=== PATIENT | female | born 1945 | race Caucasian/White ===

== ENCOUNTER 2021-03-20 08:46 | Inpatient (IN) | payer OTHER ==
[~2021-03-20] VITALS: Ht 157.5 cm; Wt 61.7 kg
[2021-03-20] MEDS ORDERED: MAGNESIUM CITRATE 300ML SOLUTION PO ONE (11:30)
[2021-03-20 13:27] LABS: HEMATOCRIT. 43.2 % (36.0-48.0); HEMOGLOBIN. 14.8 g/dL (12.0-16.0); MEAN CORPUSCULAR VOLUME 96.2 fL (81.0-99.0); MEAN PLATELET VOLUME 7.5 fl (7.4-10.4); PLATELET 133 x1000/uL (130-400); RED BLOOD CELL COUNT 4.49 mill/uL (4.2-5.4); RED CELL DISTRIBUTION WIDTH 14.5 % (11.6-14.6)
[2021-03-20 13:35] LABS: CHLORIDE 98 mEq/L (98-107)
[2021-03-20 13:37] LABS: PROTHROMBIN TIME 11.2 sec (9.6-11.0)
[2021-03-20 13:48] LABS: PLATELET ESTIMATE NORMAL
[2021-03-20] MEDS ORDERED: MORPHINE SULFATE 4 MG/ML CPJ (NOT FOR IM USE) IV NR (16:30)
[2021-03-20] MEDS ORDERED: LORAZEPAM 2MG/ML CPJ IV ONE (16:30)
[2021-03-20] MEDS ORDERED: SODIUM CHLORIDE 0.9% 1,000 ML IV ONE ×2 (16:30→19:15)
[2021-03-20] MEDS ORDERED: CEFTRIAXONE 1 G PREMIX 50 ML IV NR (17:00)
[2021-03-20] MEDS ORDERED: METRONIDAZOLE 500 MG PREMIX 100 ML IV NR (17:00)
[2021-03-20] MEDS ORDERED: IOHEXOL-300 100 ML BOTTLE ONE (18:12)
[2021-03-20 19:44] LABS: HEMATOCRIT. 42.3 % (36.0-48.0); HEMOGLOBIN. 14.4 g/dL (12.0-16.0); MEAN CORPUSCULAR HEMOGLOBIN 33.3 pg (28.0-32.0); MEAN CORPUSCULAR VOLUME 97.7 fL (81.0-99.0); MEAN PLATELET VOLUME 7.7 fl (7.4-10.4); PLATELET 126 x1000/uL (130-400); RED BLOOD CELL COUNT 4.33 mill/uL (4.2-5.4); RED CELL DISTRIBUTION WIDTH 14.7 % (11.6-14.6)
[2021-03-20 20:42] LABS: PLATELET ESTIMATE SLIGHTLY DECREASED
[2021-03-20 21:19] LABS: CLARITY URINE CLEAR (CLEAR); COLOR URINE DARK YELLOW (YELLOW); KETONES URINE TRACE (NEGATIVE); LEUKOCYTE ESTERASE URINE 1+ (NEGATIVE); NITRITE URINE POSITIVE (NEGATIVE); OCCULT BLOOD URINE 3+ (NEGATIVE); PH URINE 7.5 (4.5-8.0); PROTEIN URINE 1+ (NEGATIVE); SPECIFIC GRAVITY URINE 1.085 (1.005-1.030)
[2021-03-20] MEDS ORDERED: HYDROCODONE/ACETAMINOPHEN 5/325MG TABLET PO PRN (21:45)
[2021-03-20] MEDS ORDERED: CLONIDINE 0.1MG TABLET PO PRN (21:45)
[2021-03-20] MEDS ORDERED: MAGNESIUM/ALUMINUM HYDROXIDE/SIMETHICONE 30ML UDC PO PRN (21:45)
[2021-03-20] MEDS ORDERED: GUAIFENESIN 200MG/10ML SUGAR FREE UDC PO PRN (21:45)
[2021-03-20] MEDS ORDERED: HYDRALAZINE 20MG/ML VIAL IV PRN (21:45)
[2021-03-20] MEDS ORDERED: DOCUSATE SODIUM 100MG CAPSULE PO PRN (21:45)
[2021-03-20] MEDS ORDERED: ACETAMINOPHEN 325MG TABLET PO PRN (21:45)
[2021-03-20] MEDS ORDERED: IPRATROPIUM/ALBUTEROL 0.5-3(2.5)MG/3ML NEB HHN PRN (21:45)
[2021-03-20] MEDS ORDERED: DIPHENHYDRAMINE 50MG/ML VIAL IV PRN (21:45)
[2021-03-20] MEDS ORDERED: CEFTRIAXONE 1 G PREMIX 50 ML IV SCH (21:45)
[2021-03-20] MEDS ORDERED: ONDANSETRON HCL 4MG/2ML INJ IV PRN (21:45)
[2021-03-20] MEDS: SODIUM CHLORIDE 0.9% INJ 3ML FLUSH IVF SCH (22:00)
[2021-03-20] MEDS: DEXT 5%/0.45% NACL 1000ML 1,000 ML IV SCH (23:18)
[2021-03-21] MEDS: MORPHINE SULFATE 2 MG/ML CPJ (NOT FOR IM USE) IV PRN ×2 (00:07→20:54)
[2021-03-21] MEDS ORDERED: METRONIDAZOLE 500 MG PREMIX 100 ML IV SCH (02:00)
[2021-03-21] MEDS: LORAZEPAM 2MG/ML CPJ IV PRN ×2 (06:13→20:54)
[2021-03-21] MEDS: SODIUM CHLORIDE 0.9% INJ 3ML FLUSH IVF SCH ×3 (06:24→21:07)
[2021-03-21] MEDS: METRONIDAZOLE 500 MG PREMIX 100 ML IV SCH ×2 (11:06→18:17)
[2021-03-21 11:30] VITALS: BP 100/49
[2021-03-21 11:58] VITALS: BP 100/49
[2021-03-21] MEDS ORDERED: ERGO500013 PO (12:40)
[2021-03-21] MEDS ORDERED: PROP10TA10 PO (12:40)
[2021-03-21] MEDS ORDERED: LOSA50TA41 PO (12:40)
[2021-03-21] MEDS ORDERED: CARB-33 MT (12:40)
[2021-03-21] MEDS ORDERED: FLUO40CA49 MT (12:40)
[2021-03-21] MEDS ORDERED: PHEN100C4 MT (12:40)
[2021-03-21] MEDS ORDERED: LEVO25TA7 PO (12:40)
[2021-03-21] MEDS ORDERED: MECL-159 PO (12:40)
[2021-03-21] MEDS ORDERED: AMLO10TA80 MT (12:40)
[2021-03-21] MEDS ORDERED: CARB200C7 PO (12:40)
[2021-03-21] MEDS ORDERED: LORA-250 MT (12:40)
[2021-03-21] MEDS: CARBAMAZEPINE 200MG TABLET PO SCH ×2 (13:00→17:00)
[2021-03-21] MEDS: CARBIDOPA/LEVODOPA 25/250MG TABLET PO SCH ×3 (13:00→21:00)
[2021-03-21] MEDS: PANTOPRAZOLE SODIUM 40 MG/VIAL IV SCH ×2 (13:12→21:07)
[2021-03-21] MEDS: DEXT 5%/0.45% NACL 1000ML 1,000 ML IV SCH (14:33)
[2021-03-21 14:52] LABS: BASOPHILS % 0.2 % (0.0-2.0); HEMOGLOBIN. 12.2 g/dL (12.0-16.0); LYMPHOCYTES % 10.8 % (20.0-50.0); MEAN CORPUSCULAR HEMOGLOBIN 33.9 pg (28.0-32.0); MEAN CORPUSCULAR VOLUME 97.3 fL (81.0-99.0); MEAN PLATELET VOLUME 7.5 fl (7.4-10.4); MONOCYTES % 10.4 % (2.0-8.0); NEUTROPHILS % 77.6 % (40.0-76.0); PLATELET 94 x1000/uL (130-400); RED CELL DISTRIBUTION WIDTH 14.9 % (11.6-14.6)
[2021-03-21 15:05] LABS: CHLORIDE 104 mEq/L (98-107)
[2021-03-21] MEDS ORDERED: CEFTRIAXONE 1,000 MG in DEXTROSE 5% WATER 50 ML IV SCH (17:00)
[2021-03-21 17:30] VITALS: BP 114/51
[2021-03-21] MEDS: CEFTRIAXONE 1,000 MG in DEXTROSE 5% WATER 50 ML IV SCH (17:34)
[2021-03-21 20:00] VITALS: BP 129/60
[2021-03-21] MEDS: PHENYTOIN SODIUM EXTENDED 100MG CAPSULE PO SCH (21:00)
[2021-03-22] VITALS: BP 117/59
[2021-03-22 00:37] LABS: HEMATOCRIT 34.9 % (36.0-48.0); HEMOGLOBIN 11.7 g/dL (12.0-16.0)
[2021-03-22] MEDS: METRONIDAZOLE 500 MG PREMIX 100 ML IV SCH ×3 (02:36→17:30)
[2021-03-22 04:00] VITALS: BP 112/44
[2021-03-22] MEDS: MORPHINE SULFATE 2 MG/ML CPJ (NOT FOR IM USE) IV PRN (06:10)
[2021-03-22] MEDS: SODIUM CHLORIDE 0.9% INJ 3ML FLUSH IVF SCH ×3 (06:11→22:00)
[2021-03-22] MEDS: LEVOTHYROXINE SODIUM 25MCG TABLET PO SCH (06:11)
[2021-03-22] MEDS: LORAZEPAM 2MG/ML CPJ IV PRN ×2 (06:24→16:17)
[2021-03-22 07:42] LABS: BASOPHILS % 0.2 % (0.0-2.0); EOSINOPHILS % 4.4 % (0.0-5.0); HEMATOCRIT. 33.2 % (36.0-48.0); HEMOGLOBIN. 11.3 g/dL (12.0-16.0); LYMPHOCYTES % 11.1 % (20.0-50.0); MEAN CORPUSCULAR HEMOGLOBIN 33.4 pg (28.0-32.0); MEAN CORPUSCULAR VOLUME 97.9 fL (81.0-99.0); MEAN PLATELET VOLUME 7.9 fl (7.4-10.4); MONOCYTES % 8.8 % (2.0-8.0); NEUTROPHILS % 75.5 % (40.0-76.0); PLATELET 81 x1000/uL (130-400); RED CELL DISTRIBUTION WIDTH 15.2 % (11.6-14.6)
[2021-03-22 08:00] VITALS: BP 122/53
[2021-03-22 08:21] LABS: CHLORIDE 103 mEq/L (98-107)
[2021-03-22] MEDS: PANTOPRAZOLE SODIUM 40 MG/VIAL IV SCH ×2 (08:31→22:00)
[2021-03-22] MEDS: DEXT 5%/0.45% NACL 1000ML 1,000 ML IV SCH (08:31)
[2021-03-22] MEDS: PROPRANOLOL HCL 10MG TABLET PO SCH (08:32)
[2021-03-22] MEDS: CARBIDOPA/LEVODOPA 25/250MG TABLET PO SCH ×4 (08:32→22:00)
[2021-03-22] MEDS: AMLODIPINE 10MG TABLET PO SCH (08:32)
[2021-03-22] MEDS: FLUOXETINE HCL 20MG CAPSULE PO SCH (08:32)
[2021-03-22] MEDS: LOSARTAN POTASSIUM 50 MG TABLET PO SCH (08:32)
[2021-03-22] MEDS: CARBAMAZEPINE 200MG TABLET PO SCH ×3 (08:32→16:16)
[2021-03-22] MEDS ORDERED: LORAZEPAM 1MG TABLET PO NR (09:00)
[2021-03-22 12:00] VITALS: BP 100/46
[2021-03-22] MEDS ORDERED: POTASSIUM CHLORIDE INJ 40 MEQ in DEXT 5% WATER 250 ML IV NR (15:00)
[2021-03-22 16:00] VITALS: BP 137/53
[2021-03-22] MEDS: CEFTRIAXONE 1,000 MG in DEXTROSE 5% WATER 50 ML IV SCH (16:59)
[2021-03-22 20:00] VITALS: BP 103/48
[2021-03-22] MEDS: PHENYTOIN SODIUM EXTENDED 100MG CAPSULE PO SCH (21:59)
[2021-03-23] VITALS: BP 116/52
[2021-03-23] MEDS: DEXT 5%/0.45% NACL 1000ML 1,000 ML IV SCH ×2 (00:19→16:52)
[2021-03-23] MEDS: LORAZEPAM 2MG/ML CPJ IV PRN (00:20)
[2021-03-23 04:00] VITALS: BP 125/46
[2021-03-23] MEDS: METRONIDAZOLE 500 MG PREMIX 100 ML IV SCH ×2 (04:03→09:36)
[2021-03-23] MEDS: LEVOTHYROXINE SODIUM 25MCG TABLET PO SCH (06:43)
[2021-03-23] MEDS: SODIUM CHLORIDE 0.9% INJ 3ML FLUSH IVF SCH ×2 (06:43→13:19)
[2021-03-23 07:57] LABS: BASOPHILS % 0.3 % (0.0-2.0); EOSINOPHILS % 9.1 % (0.0-5.0); HEMATOCRIT. 37.3 % (36.0-48.0); HEMOGLOBIN. 12.9 g/dL (12.0-16.0); LYMPHOCYTES % 18.5 % (20.0-50.0); MEAN PLATELET VOLUME 7.5 fl (7.4-10.4); MONOCYTES % 8.8 % (2.0-8.0); NEUTROPHILS % 63.3 % (40.0-76.0); PLATELET 99 x1000/uL (130-400); RED BLOOD CELL COUNT 3.89 mill/uL (4.2-5.4); RED CELL DISTRIBUTION WIDTH 14.3 % (11.6-14.6)
[2021-03-23 08:00] VITALS: BP 152/63
[2021-03-23 08:07] LABS: CHLORIDE 100 mEq/L (98-107)
[2021-03-23] MEDS: PANTOPRAZOLE SODIUM 40 MG/VIAL IV SCH (09:36)
[2021-03-23] MEDS: CARBAMAZEPINE 200MG TABLET PO SCH ×3 (09:37→16:52)
[2021-03-23] MEDS: CARBIDOPA/LEVODOPA 25/250MG TABLET PO SCH ×3 (09:37→16:52)
[2021-03-23] MEDS: AMLODIPINE 10MG TABLET PO SCH (09:37)
[2021-03-23] MEDS: FLUOXETINE HCL 20MG CAPSULE PO SCH (09:37)
[2021-03-23] MEDS: PROPRANOLOL HCL 10MG TABLET PO SCH (09:38)
[2021-03-23] MEDS: LOSARTAN POTASSIUM 50 MG TABLET PO SCH (09:38)
[2021-03-23] MEDS: POTASSIUM CHLORIDE 20MEQ/PACKET PO SCH ×2 (09:39→11:16)
[2021-03-23 12:00] VITALS: BP 112/67
[2021-03-23 16:00] VITALS: BP 125/70
[2021-03-23] MEDS ORDERED: METR500T MT (16:37)
[2021-03-23] MEDS ORDERED: LEVO500T89 MT (16:37)
[2021-03-23] MEDS ORDERED: PROT40 MT (16:37)
[2021-03-23] MEDS ORDERED: TRAM50TA94 MT (16:37)
[2021-03-23] MEDS: CEFTRIAXONE 1,000 MG in DEXTROSE 5% WATER 50 ML IV SCH (17:20)
[2021-03-23 18:26] VITALS: BP 125/70
[2021-03-23] MEDS ORDERED: METRONIDAZOLE 500MG TABLET PO SCH (22:00)
[2021-03-24] MEDS ORDERED: ERGOCALCIFEROL 50000UNITS CAPSULE PO NR (09:00)
== END 2021-03-23 19:15 | disposition home or self-care (01) | DRG 391 ==
LOC: EDBD 08:46 → ER 08:46 → MICUSO 20:02 → EDBEDREQ 20:05 → 5WST 03-21 08:49
PROVIDERS: ADMIT Internal Medicine; ATTEND Internal Medicine
DX: A09 Infectious gastroenteritis and colitis, unspecified (principal); K57.91 Diverticulosis of intestine, part unspecified, without perforation or abscess with bleeding; K55.9 Vascular disorder of intestine, unspecified; E87.1 Hypo-osmolality and hyponatremia; E87.2 Acidosis; N39.0 Urinary tract infection, site not specified; E44.1 Mild protein-calorie malnutrition; E86.0 Dehydration; K59.00 Constipation, unspecified; E78.5 Hyperlipidemia, unspecified; E78.00 Pure hypercholesterolemia, unspecified; E27.8 Other specified disorders of adrenal gland; E03.9 Hypothyroidism, unspecified; D72.825 Bandemia; D69.6 Thrombocytopenia, unspecified; D64.9 Anemia, unspecified; I10 Essential (primary) hypertension; G20 Parkinson's disease; D17.9 Benign lipomatous neoplasm, unspecified; E87.6 Hypokalemia; Z79.890 Hormone replacement therapy; Z79.899 Other long term (current) drug therapy; Z68.24 Body mass index [BMI] 24.0-24.9, adult
CPT/HCPCS: 36415; 74174; 74177; 78278; 80048; 80053; 81003; 83605; 84132; 85014; 85018; 85025; 86850; 86900; 93005; 96365; 96375; 97162; 99285; A9560; C9113; J0696; J2060; J2270; J3480; J3490; J7060; Q9967

== ENCOUNTER 2023-10-02 17:56 | Inpatient (IN) | payer MEDICARE ==
[~2023-10-02] VITALS: Ht 154.9 cm; Wt 64.0 kg
[~2023-10-02 17:56] MED LIST: AMLO10TA80 MT; CARB-33 MT; CARB200C7 PO; ERGO1250 PO; FLUO40CA49 MT; LEVO-65 MT; LEVO25TA7 PO; LORA-250 MT; LOSA50TA41 PO; MECL-299 PO; METR500T MT; PHEN100C4 MT; PROP10TA10 PO; PROT40 MT; TRAM50TA94 MT
[2023-10-02] MEDS ORDERED: SODIUM CHLORIDE 0.9% 1,000 ML IV ONE ×2 (18:45→22:15)
[2023-10-02 19:12] LABS: BASOPHILS % 0.6 % (0.0-2.0); EOSINOPHILS % 0.3 % (0.0-5.0); HEMATOCRIT. 36.5 % (36.0-48.0); HEMOGLOBIN. 12.2 g/dL (12.0-16.0); LYMPHOCYTES % 7.9 % (20.0-50.0); MEAN CORPUSCULAR HEMOGLOBIN 30.2 pg (28.0-32.0); MEAN CORPUSCULAR HGB CONC 33.4 g/dL (31.0-37.0); MEAN CORPUSCULAR VOLUME 90.4 fL (81.0-99.0); MONOCYTES % 9.7 % (2.0-8.0); NEUTROPHILS % 81.5 % (40.0-76.0); PLATELET 122 x1000/uL (130-400); RED BLOOD CELL COUNT 4.04 mill/uL (4.2-5.4); RED CELL DISTRIBUTION WIDTH 22.8 % (11.6-14.6); WHITE BLOOD COUNT 7.3 x1000/uL (4.5-11.0)
[2023-10-02 19:13] LABS: DIFFERENTIAL COMMENT 1
[2023-10-02 19:14] LABS: ADD RBC MORPHOLOGY YES
[2023-10-02 19:29] LABS: ALANINE AMINOTRANSFERASE 46 IU/L (10-49); ALBUMIN 4.2 g/dL (3.2-4.8); ASPARTATE AMINOTRANSFERASE 59 IU/L (<34); BILIRUBIN TOTAL 0.4 mg/dL (0.1-1.0); CALCIUM 9.2 mg/dL (8.7-10.4); CARBON DIOXIDE 29 mEq/L (21-32); CHLORIDE 102 mEq/L (98-107); GLUCOSE 99 mg/dL (70-105); POTASSIUM 4.1 mEq/L (3.5-5.1); SODIUM 139 mEq/L (136-145); TROPONIN I HIGH SENSITIVITY 17 ng/L (3.0-34); UREA NITROGEN BLOOD 18 mg/dL (9-23)
[2023-10-02 19:38] LABS: ANISOCYTOSIS 2+; PLATELET ESTIMATE DECREASED
[2023-10-02 19:39] LABS: PHENYTOIN 2.1 ug/mL (10-20)
[2023-10-02] MEDS ORDERED: PHENYTOIN SODIUM EXTENDED 100MG CAPSULE PO ONE (21:45)
[2023-10-02] MEDS ORDERED: PHENYTOIN SODIUM 1,000 MG in SODIUM CHLORIDE 0.9% 100 ML IV ONE (22:15)
[2023-10-03] VITALS (7 sets, daily range): BP systolic 86–116; BP diastolic 52–81; PULSE 64–77; RESP 12–18; TEMP 98–98.6
[2023-10-03] MEDS ORDERED: ONDANSETRON HCL 4MG/2ML INJ IV PRN (00:45)
[2023-10-03] MEDS ORDERED: TRAMADOL 50MG TABLET PO PRN (00:45)
[2023-10-03] MEDS ORDERED: CLONIDINE 0.1MG TABLET PO PRN (00:45)
[2023-10-03] MEDS: ACETAMINOPHEN 325MG TABLET PO PRN ×2 (04:08→18:10)
[2023-10-03] MEDS: SODIUM CHLORIDE 0.9% 1,000 ML IV SCH ×2 (04:13→14:10)
[2023-10-03] MEDS: CARBIDOPA/LEVODOPA 25/250MG TABLET PO SCH ×3 (06:11→20:47)
[2023-10-03 06:47] LABS: BASOPHILS % 0.2 % (0.0-2.0); HEMATOCRIT. 33.6 % (36.0-48.0); LYMPHOCYTES % 17.3 % (20.0-50.0); MEAN CORPUSCULAR HEMOGLOBIN 30.3 pg (28.0-32.0); MEAN CORPUSCULAR HGB CONC 32.8 g/dL (31.0-37.0); MEAN CORPUSCULAR VOLUME 92.3 fL (81.0-99.0); MEAN PLATELET VOLUME 7.8 fl (7.4-10.4); MONOCYTES % 11.7 % (2.0-8.0); NEUTROPHILS % 68.8 % (40.0-76.0); PLATELET 118 x1000/uL (130-400); RED BLOOD CELL COUNT 3.64 mill/uL (4.2-5.4); WHITE BLOOD COUNT 5.8 x1000/uL (4.5-11.0)
[2023-10-03 06:50] LABS: DIFFERENTIAL COMMENT 1
[2023-10-03 07:10] LABS: CALCIUM 8.6 mg/dL (8.7-10.4); CARBON DIOXIDE 27 mEq/L (21-32); CHLORIDE 107 mEq/L (98-107); CREATININE 0.6 mg/dL (0.6-1.0); GLUCOSE 82 mg/dL (70-105); POTASSIUM 3.8 mEq/L (3.5-5.1); SODIUM 142 mEq/L (136-145); UREA NITROGEN BLOOD 14 mg/dL (9-23)
[2023-10-03 07:49] LABS: HEPATITIS B SURFACE ANTIGEN NEGATIVE (Negative); HEPATITIS C AB NON REACTIVE (Neg) (Negative)
[2023-10-03] MEDS ORDERED: POTA-205 PO (07:58)
[2023-10-03] MEDS ORDERED: TORS20TA4 PO (07:58)
[2023-10-03] MEDS ORDERED: ROPI2TAB52 PO (07:58)
[2023-10-03] MEDS ORDERED: TRIH2TAB3 PO (07:58)
[2023-10-03] MEDS ORDERED: HYDR10TA34 PO (07:58)
[2023-10-03] MEDS: FLUOXETINE HCL 20MG CAPSULE PO SCH (08:52)
[2023-10-03] MEDS: CARBAMAZEPINE 200MG TABLET PO SCH ×2 (08:53→18:10)
[2023-10-03] MEDS: PANTOPRAZOLE 40MG DR TABLET PO SCH (08:53)
[2023-10-03] MEDS: LOSARTAN 50 MG TABLET PO SCH (08:53)
[2023-10-03] MEDS: LEVOTHYROXINE SODIUM 25MCG TABLET PO SCH (08:53)
[2023-10-03] MEDS: AMLODIPINE 10MG TABLET PO SCH (08:53)
[2023-10-03] MEDS: ENOXAPARIN 30MG/0.3ML SYR SUBCUT SCH (08:54)
[2023-10-03] MEDS ORDERED: PROPRANOLOL HCL 10MG TABLET PO SCH (09:00)
[2023-10-03 09:14] LABS: *AMPHETAMINES SCREEN URINE NEGATIVE (NEGATIVE); *BARBITURATES SCREEN URINE NEGATIVE (NEGATIVE); *BENZODIAZEPINES SCREEN URINE PRESUMPTIVE POSITIVE (NEGATIVE); *COCAINE SCREEN URINE NEGATIVE (NEGATIVE); CANNABINOID URINE SCREEN NEGATIVE (NEGATIVE); METHADONE URINE SCREEN Neg (NEGATIVE); OPIATES URINE SCREEN NEGATIVE (NEGATIVE); PHENCYCLIDINE URINE SCREEN NEGATIVE (NEGATIVE)
[2023-10-03] MEDS ORDERED: PHENYTOIN SODIUM EXTENDED 100MG CAPSULE PO NR (11:30)
[2023-10-03 16:57] LABS: CLARITY URINE CLEAR (CLEAR); COLOR URINE YELLOW (YELLOW); GLUCOSE URINE NEGATIVE (NEGATIVE); KETONES URINE NEGATIVE (NEGATIVE); LEUKOCYTE ESTERASE URINE TRACE (NEGATIVE); NITRITE URINE NEGATIVE (NEGATIVE); OCCULT BLOOD URINE NEGATIVE (NEGATIVE); PH URINE 6.5 (4.5-8.0); PROTEIN URINE NEGATIVE (NEGATIVE); SPECIFIC GRAVITY URINE 1.017 (1.005-1.030)
[2023-10-03 17:01] LABS: WBC URINE 0-2 /hpf (0-2); YEAST URINE NONE SEEN
[2023-10-03 17:37] LABS: BACTERIA URINE TRACE; RBC URINE 0-2 /hpf (0-2); SQUAMOUS EPITHELIAL CELL URINE FEW /lpf (RARE/1+)
[2023-10-03] MEDS: PHENYTOIN SODIUM EXTENDED 100MG CAPSULE PO SCH (20:47)
[2023-10-03] MEDS: LORAZEPAM 4MG/ML VIAL IV PRN (20:54)
[2023-10-04] VITALS: BP 118/59; PULSE 68; RESP 18; TEMP 98.6
[2023-10-04 02:35] LABS: VITAMIN B12 SERUM 522 pg/mL (211-911)
[2023-10-04] MEDS: SODIUM CHLORIDE 0.9% 1,000 ML IV SCH ×2 (03:34→16:45)
[2023-10-04 04:00] VITALS: BP 100/53; PULSE 66; RESP 17; TEMP 98
[2023-10-04] MEDS: CARBIDOPA/LEVODOPA 25/250MG TABLET PO SCH ×3 (06:56→21:14)
[2023-10-04 08:00] VITALS: BP 120/58; PULSE 69; RESP 18; TEMP 97.7
[2023-10-04] MEDS: PANTOPRAZOLE 40MG DR TABLET PO SCH (08:30)
[2023-10-04] MEDS: FLUOXETINE HCL 20MG CAPSULE PO SCH (08:30)
[2023-10-04] MEDS: LEVOTHYROXINE SODIUM 25MCG TABLET PO SCH (08:30)
[2023-10-04] MEDS: CARBAMAZEPINE 200MG TABLET PO SCH ×2 (08:31→17:24)
[2023-10-04] MEDS: AMLODIPINE 10MG TABLET PO SCH (08:31)
[2023-10-04] MEDS: ENOXAPARIN 30MG/0.3ML SYR SUBCUT SCH (08:32)
[2023-10-04] MEDS: LOSARTAN 50 MG TABLET PO SCH (08:32)
[2023-10-04 12:00] VITALS: BP_SYST 100; BP_SYST 101; BP_SYST 121; BP_DIAS 61; BP_DIAS 66; BP_DIAS 77; PULSE 70; RESP 20; TEMP 98.9
[2023-10-04] MEDS: ACETAMINOPHEN 325MG TABLET PO PRN ×2 (12:48→22:50)
[2023-10-04 16:00] VITALS: BP 110/68; PULSE 72; RESP 21; TEMP 98
[2023-10-04 20:24] VITALS: BP_SYST 120; BP_SYST 126; BP_SYST 129; BP_DIAS 60; BP_DIAS 62; PULSE 77; RESP 22; TEMP 98.1
[2023-10-04] MEDS: LORAZEPAM 4MG/ML VIAL IV PRN (21:15)
[2023-10-04] MEDS: PHENYTOIN SODIUM EXTENDED 100MG CAPSULE PO SCH (21:15)
[2023-10-05 00:05] VITALS: BP 129/62; PULSE 83; RESP 21; TEMP 98.9
[2023-10-05 04:06] VITALS: BP 116/60; PULSE 77; RESP 19; TEMP 97.8
[2023-10-05] MEDS: CARBIDOPA/LEVODOPA 25/250MG TABLET PO SCH ×2 (06:24→13:15)
[2023-10-05] MEDS: SODIUM CHLORIDE 0.9% 1,000 ML IV SCH (06:25)
[2023-10-05 08:00] VITALS: BP 121/63; PULSE 80; RESP 19; TEMP 98.4
[2023-10-05] MEDS: AMLODIPINE 10MG TABLET PO SCH (08:46)
[2023-10-05] MEDS: FLUOXETINE HCL 20MG CAPSULE PO SCH (08:46)
[2023-10-05] MEDS: ENOXAPARIN 30MG/0.3ML SYR SUBCUT SCH (08:46)
[2023-10-05] MEDS: CARBAMAZEPINE 200MG TABLET PO SCH (08:46)
[2023-10-05] MEDS: PANTOPRAZOLE 40MG DR TABLET PO SCH (08:46)
[2023-10-05] MEDS: LEVOTHYROXINE SODIUM 25MCG TABLET PO SCH (08:46)
[2023-10-05] MEDS: LOSARTAN 50 MG TABLET PO SCH (08:46)
[2023-10-05 10:00] VITALS: BP 121/63; PULSE 80; RESP 19; TEMP 98.4
[2023-10-05 11:23] VITALS: BP 121/63; PULSE 80; RESP 19; TEMP 98.4
[2023-10-05 14:44] VITALS: BP 117/60; PULSE 71; TEMP 98.1; O2SAT 95
== END 2023-10-05 16:00 | disposition home or self-care (01) | DRG 101 ==
LOC: ER 17:56 → MICUSO 22:16 → 3WST 23:59
PROVIDERS: ADMIT Internal Medicine; ATTEND Internal Medicine
PROC: 4A00X4Z Measurement of Central Nervous Electrical Activity, External Approach (ICD-10-PCS; principal; 2023-10-04)
DX: G40.909 Epilepsy, unspecified, not intractable, without status epilepticus (principal); E03.9 Hypothyroidism, unspecified; E78.00 Pure hypercholesterolemia, unspecified; I10 Essential (primary) hypertension; I95.9 Hypotension, unspecified; F03.90 Unspecified dementia, unspecified severity, without behavioral disturbance, psychotic disturbance, mood disturbance, and anxiety; Z79.899 Other long term (current) drug therapy
CPT/HCPCS: 36415; 71045; 80048; 80053; 80156; 80185; 80305; 81003; 82607; 82962; 84443; 84484; 85025; 86705; 87340; 93005; 95816; 97116; 97162; 99285; J1165; J1650; J2060; J7030; J7050